=== PATIENT | female | born 1945 | race Caucasian/White ===

== ENCOUNTER → 2023-12-27 10:03 | Outpatient (REF) | payer OTHER, SELFPAY | LOC: RCS 10:03 | PROVIDERS: ATTENDING PHYSICIAN Family Medicine; REFERRING PHYSICIAN Internal Medicine Hematology & Oncology | DX: R01.1 Cardiac murmur, unspecified (principal); I36.1 Nonrheumatic tricuspid (valve) insufficiency | CPT/HCPCS: 93306 ==